=== PATIENT | female | born 2000 | race Caucasian/White ===

== ENCOUNTER 2024-07-05 15:09 | Outpatient (CLI) | payer BC, SELFPAY ==
[2024-07-05 15:47] LABS: Basophils % 0.6 % (0.1-2.0); Eosinophils # 0.2 K/mm3 (0.0-0.4); Hemoglobin 11.7 g/dL (12.2-16.2); Lymphocytes # 1.6 K/mm3 (0.7-4.5); Lymphocytes % 23.4 % (10-50); Mean Corpuscular HGB Conc 32.4 g/dL (31.8-35.4); Mean Corpuscular Hemoglobin 33.4 pg (27.0-31.2); Mean Corpuscular Volume 103.1 fl (81-99); Mean Platelet Volume 8.4 fl (7.4-10.4); Monocytes # 0.4 K/mm3 (0.1-1.0); Monocytes % 5.4 % (1.7-9.3); Neutrophils # 4.7 K/mm3 (1.8-7.8); Neutrophils % 67.6 % (37.0-80.0); Platelet Count 239 K/mm3 (142-424); Red Blood Count 3.49 M/mm3 (4.20-5.40); Red Cell Distribution Width 14.1 % (11.5-17.5)
[2024-07-06 09:07] LABS: HIV (1&2) Antibody Rapid NONREACTIVE (NONREACTIVE)
[2024-07-07 09:21] LABS: HCV Ab Non Reactive (Non Reactive); Hepatitis B Surface Antigen Negative (Negative)
[2024-07-07 13:08] LABS: Rubella Antibodies, IgG 1.13 index (Immune >0.99)
[2024-07-07 14:13] LABS: Rapid Plasma Reagin Ab Titer Non Reactive titer (NonRea<1:1)
== END 2024-07-05 23:59 | disposition home or self-care (01) ==
LOC: LAB 15:14
PROVIDERS: Visit Provider Nurse Practitioner Obstetrics & Gynecology
DX: Z34.90 Encounter for supervision of normal pregnancy, unspecified, unspecified trimester (principal)
CPT/HCPCS: 86803; 86703; 36415; 85025; 86593; 86762; 86850; 87086; 87340

== ENCOUNTER 2024-07-13 10:28 | Outpatient (CLI) | payer BC, SELFPAY ==
--- NOTE | 2024-07-13 10:31 | US_ITS ---
PROCEDURE: US OB >= 14 WEEKS FETUS CLINICAL INDICATION: viability and dates COMPARISON: No exams were available for comparison FINDINGS: Transabdominal sonographic images of the pelvis were obtained. The following parameters are obtained: From her established due date she is 16weeks 1day, JOSEPH 12/27/2024 Viable fetus in the cephalic presentation with a posterior placenta grade 1. heart rate: 150bpm bpm. BPD: 16weeks 4days HC: 16weeks 3days AC: 16weeks 1day FL: 16weeks 5days HC/AC: 1.26 FL/BPD: 0.65 FL/AC: 0.22 Growth percentile: 56 Amniotic fluid: Appears normal. No obvious anomalies evident. profile seen, fetus active. Right ovary appears normal. Left ovary appears normal. IMPRESSION: 1. Viable fetus in the cephalic presentation with a posterior placenta grade 1. 2. The fluid is within normal limits. 3. Limited anatomical scan appears normal and the fetus is active. 4. biometry is consistent with the dates. JOSEPH will remain 12/27/2024. Dictated by: Adan Cook MD 07/14/2024 07:13 Adan Cook MD in [place] 07/14/2024 07:13
== END 2024-07-13 23:59 | disposition home or self-care (01) ==
LOC: RAD 10:29
PROVIDERS: Visit Provider Nurse Practitioner Obstetrics & Gynecology
DX: Z34.92 Encounter for supervision of normal pregnancy, unspecified, second trimester (principal); Z3A.15 15 weeks gestation of pregnancy
CPT/HCPCS: 76805

== ENCOUNTER 2024-08-11 12:15 | Outpatient (CLI) | payer BC, SELFPAY ==
--- NOTE | 2024-08-11 12:15 | US_ITS ---
PROCEDURE: US OB /MATERNAL DETAIL CLINICAL INDICATION: 20 week Anatomy Scan-US OB Complete COMPARISON: No exams were available for comparison FINDINGS: Transabdominal sonographic images of the pelvis were obtained. From her established due date she is 20 weeks 2 days. Single viable intrauterine gestation. Breech position. Placenta: Posterior fundal wrapped placenta grade 1. There is an average amount of fluid. The cervix appears satisfactory. Closed and measuring 4.24 cm in length. Complete survey performed and was unremarkable on the submitted images as in PACS. No discrete anomalies identified on survey imaging by technologist. Active fetus. Three-vessel cord with satisfactory umbilical cord insertion. 4- chamber heart noted. Situs, aortic arch, LVOT, RVOT, three-vessel view appear normal. Survey of brain & ventricles Unremarkable. Cerebellum, thalamus, choroid plexus, cisterna magna appear normal. Face and neck survey unremarkable. Profile, nasion, lips and nose appeared normal. Diaphragm and chest views unremarkable. Abdomen: Both kidneys noted and unremarkable. Stomach and bladder noted and satisfactory. Spine: Survey of the spine satisfactory with no anomalies identified nor imaged. Cervical, thoracic, lower spine appear normal. Both arms and legs noted. Amniotic Fluid: Adequate. MVP 5.95 cm Measurements: Average ultrasound age 20weeks 2days. Estimated due date by ultrasound age 0212/27/2024. Estimated weight 343g BPD = 20weeks 0 days HC = 20weeks 0 days AC = 20weeks 5days FL = 20weeks 1day Growth Percentile= 43 Heart Rate = 149bpm Cerebellum = 19weeks 6days Humerus = 20weeks 6days HC/AC is 1.13 FL/BPD is 0.7 FL/AC is 0.21 IMPRESSION: 1. Viable fetus in the breech presentation with a posterior fundal wrapped placenta grade 1. 2. The fluid is within normal limits. MVP 5.95 cm. 3. Anatomical scan appears normal. 4. Spine views appeared normal but were incomplete due to position and would suggest repeat views in 2-3 weeks. 5. biometry is consistent with the dates. Dictated by: Adan Cook MD 08/12/2024 12:57 Adan Cook MD in [place] 08/12/2024 12:57
== END 2024-08-11 23:59 | disposition home or self-care (01) ==
LOC: RAD 12:15
PROVIDERS: PCP Family Medicine; Visit Provider Nurse Practitioner Obstetrics & Gynecology
DX: Z36.3 Encounter for antenatal screening for malformations (principal); O09.292 Supervision of pregnancy with other poor reproductive or obstetric history, second trimester; Z3A.20 20 weeks gestation of pregnancy
CPT/HCPCS: 76811

== ENCOUNTER 2024-09-02 12:52 | Outpatient (CLI) | payer BC, SELFPAY ==
--- NOTE | 2024-09-02 12:52 | US_ITS ---
PROCEDURE: US OB >= 14 WEEKS FETUS CLINICAL INDICATION: spine views COMPARISON: US US OB >= 14 WEEKS FETUS from 07/13/2024 US US OB /MATERNAL DETAIL from 08/11/2024 FINDINGS: Transabdominal sonographic images of the pelvis were obtained. The following parameters are obtained: From her established due date she is 23weeks 3days Viable fetus in the breech presentation with a posterior placenta grade 1. The cervix measures 3.3 cm. heart rate: 146bpm bpm. Average ultrasound age is 23 weeks 0 days weight is 568 grams, 1 lb 4 oz BPD: 22weeks 3days HC: 22weeks 3days AC: 23weeks 3days FL: 23weeks 2days HC/AC: 1.09 FL/BPD: 0.76 FL/AC: 0.22 Growth percentile: 29 Amniotic fluid: MVP 3.67 cm. No obvious anomalies evident. profile seen, stomach, bladder, kidneys, three-vessel cord, four chamber heart appear normal. spine: Cervical, thoracic and lower spine appear normal. heart: Four-chamber view, three-vessel view, LVOT and RVOT appear normal. IMPRESSION: 1. Viable fetus in the breech presentation with a posterior placenta grade 1. 2. The fluid is within normal limits MVP 3.67 cm. 3. Spinal views today were seen and appear normal. Cardiac views appear normal as well. 4. The rest of the limited anatomical scan appears normal. 5. There has been good interval growth and biometry is consistent with the dates. Dictated by: Adan Cook MD 09/03/2024 08:38 Adan Cook MD in [place] 09/03/2024 08:38
== END 2024-09-02 23:59 | disposition home or self-care (01) ==
LOC: RAD 12:52
PROVIDERS: PCP Family Medicine; Visit Provider Nurse Practitioner Obstetrics & Gynecology
DX: Z34.90 Encounter for supervision of normal pregnancy, unspecified, unspecified trimester (principal)
CPT/HCPCS: 76805

== ENCOUNTER 2024-10-11 11:42 | Outpatient (CLI) | payer BC, SELFPAY ==
[2024-10-11 12:20] LABS: Basophils # 0.1 K/mm3 (0-0.2); Basophils % 0.6 % (0.1-2.0); Eosinophils # 0.2 K/mm3 (0.0-0.4); Eosinophils % 1.9 % (0.1-12.0); Hematocrit 36.5 % (37.0-47.0); Hemoglobin 12.3 g/dL (12.2-16.2); Lymphocytes # 1.8 K/mm3 (0.7-4.5); Lymphocytes % 22.5 % (10-50); Mean Corpuscular HGB Conc 33.6 g/dL (31.8-35.4); Mean Corpuscular Hemoglobin 33.4 pg (27.0-31.2); Mean Corpuscular Volume 99.5 fl (81-99); Mean Platelet Volume 7.8 fl (7.4-10.4); Monocytes # 0.5 K/mm3 (0.1-1.0); Neutrophils # 5.4 K/mm3 (1.8-7.8); Platelet Count 244 K/mm3 (142-424); Red Blood Count 3.67 M/mm3 (4.20-5.40); Red Cell Distribution Width 12.8 % (11.5-17.5); White Blood Count 7.8 K/mm3 (4.8-10.8)
[2024-10-11 12:33] LABS: Glucose,Fasting 68 mg/dl (74-100)
[2024-10-11 14:22] LABS: Glucose 1 Hour 166 mg/dL (74-100)
[2024-10-11 15:00] LABS: RPR W/RFX Titers Nonreactive (Nonreactive)
== END 2024-10-11 23:59 | disposition home or self-care (01) ==
PROVIDERS: Visit Provider Nurse Practitioner Obstetrics & Gynecology
DX: Z34.90 Encounter for supervision of normal pregnancy, unspecified, unspecified trimester (principal)
CPT/HCPCS: 82951; 85025; 86592

== ENCOUNTER 2024-10-21 14:23 | Outpatient (CLI) | payer BC, SELFPAY ==
--- NOTE | 2024-10-21 14:24 | US_ITS ---
PROCEDURE: US OB BIOPHYSICAL PROFILE CLINICAL INDICATION: SGA COMPARISON: US US OB >= 14 WEEKS FETUS from 07/13/2024 US US OB /MATERNAL DETAIL from 08/11/2024 US US OB >= 14 WEEKS FETUS from 09/02/2024 FINDINGS: Transabdominal sonographic images of the uterus were obtained. From her established due date she is 30weeks 3days. The following parameters are obtained: Viable Fetus in the cephalic presentation with a posterior placenta grade 1. Average ultrasound age is 30weeks 2days Estimated weight 1,471g, 3 lb 4 oz Cervix measures 2.86 cm Measurements: heart Rate = 149bpm BPD = 30weeks 4days, 42 percentile HC = 30weeks 4days, 18 percentile AC = 29weeks 2days, 15 percentile FL = 30weeks 4days, 38 percentile HC/AC is 1.11 FL/BPD is 0.77 FL/AC is 0.23 21 percentile Amniotic fluid index: 10.71cm, MVP 4.28 cm Qualitative AFV:2 Breathing movements: 2 Gross Body Movements: 2 Tone: 2 Biophysical profile score: 8 Doppler evaluation of the umbilical artery: SD ratio: 3.73-4.79 Resistive index: 0.73 No obvious anomalies evident.Kidneys, stomach, bladder, four-chamber heart, three-vessel cord appear normal. IMPRESSION: 1. Viable fetus in the cephalic presentation with a posterior placenta grade 1. 2. The fluid is within normal limits with an amniotic fluid index 10.71 cm, MVP 4.28 cm. 3. Biophysical profile is 8/8 with good breathing movement and movement seen. 4. SD ratio is normal 3.73-4.79. 5. There has been good interval growth with the fetus currently 21st percentile. 6. Limited anatomical scan appears normal. Dictated by: Adan Cook MD 10/22/2024 07:45 Aadn Cook MD in [place] 10/22/2024 07:45
== END 2024-10-21 23:59 | disposition home or self-care (01) ==
LOC: RAD 14:24
PROVIDERS: PCP Nurse Practitioner Obstetrics & Gynecology; Visit Provider Nurse Practitioner Obstetrics & Gynecology
DX: O36.5990 Maternal care for other known or suspected poor fetal growth, unspecified trimester, not applicable or unspecified (principal)
CPT/HCPCS: 76816; 76819; 76820

== ENCOUNTER 2024-11-24 12:17 | Outpatient (CLI) | payer MEDICAID, SELFPAY ==
[2024-11-24 12:46] VITALS: BMI 33.3
[2024-11-24 12:50] VITALS: BP 120/74; PULSE 116; RESP 16; TEMP 37.2; O2SAT 99; BMI 33.3
[2024-11-24 12:52] LABS: Microscopic, Urine URINE MICROSCOPIC (MICROSCOPIC)
[2024-11-24 13:14] LABS: Bilirubin,Urine Negative (Negative); Blood, Urine Negative (Negative); Color,Urine YELLOW (Yellow); Glucose,Urine (UA) Negative (Negative); Ketones,Urine Negative (Negative); Leukocyte Esterase,Urine 3+ (Negative); Nitrate,Urine Negative (Negative); Protein,Urine Negative (Negative); Urobilinogen,Urine 0.2 EU/dl (0.2)
[2024-11-24 13:18] LABS: Appearance,Urine Slightly Cloudy (Clear)
[2024-11-24 13:23] LABS: Amphetamine/Metha Screen,Urine Negative ng/ml (<1000); Benzodiazepines Screen,Urine Negative ng/ml (<200)
[2024-11-24 13:24] LABS: Barbiturates Screen,Urine Negative ng/ml (<200)
[2024-11-24 13:26] LABS: Cocaine Screen,Urine Negative ng/ml (<300)
[2024-11-24 13:27] LABS: Opiate Screen,Urine Negative ng/ml (<300); Phencyclidine Screen,Urine Negative ng/ml (<25)
[2024-11-24 13:36] LABS: Cannabinoid Screen,Urine Negative ng/ml (<50)
[2024-11-24 13:47] LABS: Bacteria,Urine 3+ /lpf; Squamous Epithelial Cell,Urine 50-100 #/hpf (0-5)
[2024-11-24 14:30] LABS: Methadone Screen,Urine Negative ng/ml (<300)
== END 2024-11-24 15:16 | disposition home or self-care (01) ==
LOC: OBOUT 12:18 → OB 12:19
PROVIDERS: Visit Provider Obstetrics & Gynecology
DX: O26.893 Other specified pregnancy related conditions, third trimester (principal); Z3A.35 35 weeks gestation of pregnancy; W01.0XXA Fall on same level from slipping, tripping and stumbling without subsequent striking against object, initial encounter
CPT/HCPCS: 80307; 81001; 87086; G0463

== ENCOUNTER 2024-11-29 16:34 | Outpatient (CLI) | payer MEDICAID, SELFPAY | END 2024-11-29 23:59 | disposition home or self-care (01) | LOC: LAB.DROPOF 16:34 | PROVIDERS: PCP Nurse Practitioner Obstetrics & Gynecology; Visit Provider Nurse Practitioner Obstetrics & Gynecology | DX: Z36.89 Encounter for other specified antenatal screening (principal) | CPT/HCPCS: 86403 ==

== ENCOUNTER 2024-12-21 05:11 | Inpatient (IN) | payer MEDICAID, SELFPAY ==
[2024-12-21] VITALS (8 sets, daily range): BP systolic 116–144; BP diastolic 58–84; PULSE 82–94; RESP 17–18; TEMP 36.6–36.9; O2SAT 98–100; BMI 34.2
[2024-12-21 05:59] LABS: Basophils % 0.4 % (0.1-2.0); Eosinophils # 0.3 K/mm3 (0.0-0.4); Eosinophils % 3.2 % (0.1-12.0); Hematocrit 36.9 % (37.0-47.0); Hemoglobin 12.6 g/dL (12.2-16.2); Lymphocytes # 1.9 K/mm3 (0.7-4.5); Lymphocytes % 24.8 % (10-50); Mean Corpuscular HGB Conc 34.1 g/dL (31.8-35.4); Mean Corpuscular Hemoglobin 33.2 pg (27.0-31.2); Mean Corpuscular Volume 97.4 fl (81-99); Mean Platelet Volume 10.9 fl (7.4-10.4); Monocytes # 0.6 K/mm3 (0.1-1.0); Monocytes % 7.5 % (1.7-9.3); Neutrophils # 4.9 K/mm3 (1.8-7.8); Neutrophils % 63.5 % (37.0-80.0); Platelet Count 214 K/mm3 (142-424); Red Blood Count 3.79 M/mm3 (4.20-5.40); Red Cell Distribution Width 12.6 % (11.5-17.5); White Blood Count 7.7 K/mm3 (4.8-10.8)
[2024-12-21 06:07] LABS: Chloride 109 mmol/L (98-107); Potassium 3.9 mmoL/L (3.5-5.1); Sodium 137 mmol/L (136-145)
[2024-12-21 06:10] LABS: Anion Gap 10.9 mEq/L (5-15); Blood Urea Nitrogen 11 mg/dl (7-17); Calcium 8.6 mg/dl (8.4-10.2); Carbon Dioxide 21 mmol/L (22.0-30.0); Creatinine Clearance Estimated 242 mL/min (50-200); Estimated Glomerular Filt Rate 153 ml/min (>60); GFR (African American) 185 ML/MIN (>60); Glucose 80 mg/dl (74-100)
--- NOTE | 2024-12-21 07:21 | EXP.HP ---
History of Present Illness *Admission Date: 12/21/24 *Reason for visit:: Term , previous fourth degree perineal laceration *History of present illness: She is a 24-year-old 4 para 1 aborta 2 who is 39 weeks gestational age. She expressed desire for sterilization. She had a previous fourth degree tear and was concerned about fecal incontinence if this happened again. As a result of that she was admitted for primary lower segment transverse section. O+ blood Rubella immune Group B streptococcus negative PFSH [facility] Disclaimer: The information contained in this section may have been updated after the patient was seen, as this information can be updated by other users. Medical History Surgical History History of delivery Family History Substance abuse Diabetes Alcoholism FHx: mental illness Cancer Stroke Social History Smoking Status: Never smoker alcohol intake: never substance use type: denies use current occupational status: employed Travel in the last 8 weeks: None Have you lived/traveled outside [place] in past 30 days?: No Contact w/someone who lives/traveled outside US past 30 days?: No Exposure to someone with infectious disease in past 14 days?: No Do you have a fever (greater than 100.4 F or 38 C)?: No Have you tested positive for COVID-19: No Exposed to someone with COVID-19 in past 14 days?: No Do you have a sore throat?: No Do you have a cough?: No Do you have any weakness?: No Do you have any diarrhea?: No Are you experiencing any unusual bleeding?: No Do you have any muscle aches/pain?: No Do you have any abdominal pain?: No Are you experiencing loss of taste or smell?: No Other Medical History Have you received the Flu Vaccine for this season: Yes Have you received the Pneumonia Vaccine: No Review of Systems Review of Systems Review of systems:: pertinent systems reviewed and negative unless documented below Meds Home Medications and Allergies Home Medications ?Medication ?Instructions ?Recorded ?Confirmed ?Type vits no.126-ferrous fum 1 tab PO DAILY 08/11/24 12/21/24 History 28 mg iron-folic acid 800 mcg tablet (Classic ) ferrous sulfate 325 mg (65 mg 325 mg PO DAILY #30 tabs 09/14/24 12/21/24 Rx iron) tablet New Prescriptions to Start Prescriptions: Allergies Allergy/AdvReac Type Severity Reaction Status Date / Time amoxicillin Allergy Severe Hives Verified 12/21/24 05:56 asparagus Allergy Severe weeze Verified 12/21/24 05:56 Exam Data for Last 24 hours Vital signs and Labs for Last 24 Hours: Temp Pulse Resp BP Pulse Ox O2 Del Method 98.4 F 93 H 18 129/66 98 Room Air 12/21/24 05:34 12/21/24 05:34 12/21/24 05:34 12/21/24 05:34 12/21/24 05:34 12/21/24 05:34 Laboratory Results - last 24 hr 12/21/24 05:40: WBC 7.7, RBC 3.79 L, Hgb 12.6, Hct 36.9 L, MCV 97.4, MCH 33.2 H, MCHC 34.1, RDW 12.6, Plt Count 214, MPV 10.9 H, Neut % (Auto) 63.5, Lymph % (Auto) 24.8, Faulkner % (Auto) 7.5, Eos % (Auto) 3.2, Baso % (Auto) 0.4, Neut # (Auto) 4.9, Lymph # (Auto) 1.9, Faulkner # (Auto) 0.6, Eos # (Auto) 0.3, Baso # (Auto) 0.0, Sodium 137, Potassium 3.9, Chloride 109 H, Carbon Dioxide 21 L, Anion Gap 10.9, BUN 11, Creatinine 0.50 L, Estimated Creat Clear 242, Estimated GFR 153, Est GFR ( Amer) 185, Glucose 80, Calcium 8.6 I & O for Last 24 hours: Intake & Output 12/18/24 12/19/24 12/20/24 12/21/24 11:59 11:59 11:59 11:59 Weight 193 lb Constitutional Constitutional: no acute distress *Routine HEENT Exam Head: Present normocephalic Eye: Present EOMI and PERRL ENT: Present mucous membranes moist *Routine Neck Exam Neck: Present supple; Absent lymphadenopathy *Routine Respiratory Exam Respiratory: Present CTA bilaterally *Routine Cardiovascular Exam Cardiovascular: Present RRR *Routine Abdominal Exam Abdominal: Present soft and normoactive bowel sounds; Absent tenderness *Routine Rectal Exam Rectal:: deferred *Routine Genitalia Exam Genitalia:: deferred *Routine Extremities Exam Extremities: Absent cyanosis, clubbing or edema *Routine Skin Exam Skin: Present warm; Absent rash *Routine Neurological Exam Neurological: Present alert and oriented X3 Assessment and Plan *Assessment and plan (1) delivery delivered: Status: Acute Category: Medical Code(s): O82 - Encounter for delivery without indication Plan She is admitted for a primary lower segment transverse section.
[2024-12-21] MEDS: LEVOFLOXACIN/D5W 500 MG/100 ML PIGGYBACK 100 MG IV (07:57)
--- NOTE | 2024-12-21 08:25 | HMH.PHAINT1 ---
Pharmacy Intervention Comments: MEDICATION RECONCILIATION COMPLETED ON PATIENT USING EXTERNAL FILL HISTORY FROM PHARMACY AND LIST FROM GEOCHEMISTRY TEACHER OFFICE. -TEREZA AAROND
--- NOTE | 2024-12-21 08:37 | EXP.ANES.CKL ---
[facility] Disclaimer: The information contained in this section may have been updated after the patient was seen, as this information can be updated by other users. Medical History Surgical History History of delivery Family History Substance abuse Diabetes Alcoholism FHx: mental illness Cancer Stroke Social History Smoking Status: Never smoker alcohol intake: never substance use type: denies use current occupational status: employed Travel in the last 8 weeks: None Have you lived/traveled outside US in past 30 days?: No Contact w/someone who lives/traveled outside US past 30 days?: No Exposure to someone with infectious disease in past 14 days?: No Do you have a fever (greater than 100.4 F or 38 C)?: No Have you tested positive for COVID-19: No Exposed to someone with COVID-19 in past 14 days?: No Do you have a sore throat?: No Do you have a cough?: No Do you have any weakness?: No Do you have any diarrhea?: No Are you experiencing any unusual bleeding?: No Do you have any muscle aches/pain?: No Do you have any abdominal pain?: No Are you experiencing loss of taste or smell?: No [facility] Anesthesia Checklist Patient Identification Patient Identification: Verbal (Name & ) Structural Data Admitted From: Inpatient Planned Operative Procedure/s: c/section Consent for Planned Operative Procedure(s) Verified: Yes NPO Status Verified Time NPO: 00:00 Airway Assessment Mallampati Score:: Class II C-Spine Mobility Assessed: Yes TMJ Mobility Assessed: Yes Dentition: Good Dentition Neurological Assessment Level of Consciousness: Awake, Alert and Appropriate Anesthesia Plan Anesthesia Risk discussed: Yes Anesthesia Plan: Verified ASA Class: II Anesthesia Type: Spinal
--- NOTE | 2024-12-21 08:39 | P.PNANES_ITS ---
[facility] Anesthesia Record Part I Anesthesia Record I Intake, IV Amount: 2,000 Hydration: Adequate Estimated blood loss (mL): 600 Urine output (mL): 400
[2024-12-21] MEDS: MEPERIDINE 25MG/ML 1ML SYRINGE 25 MG IV (08:42)
--- NOTE | 2024-12-21 08:44 | P.OP_ITS ---
Date of procedure: 12/21/24 Pre-op Diagnosis:: Term , desire for section, previous fourth degree tear. Post-op Diagnosis:: Term , desire for section, previous fourth degree tear Procedure performed:: Primary lower segment transverse section Surgeon:: Adan Cook MD [employer] Installation Helper(s):: Dr. Grant JOB PUTTER UP AND TICKET PREPARER:: Omar Bateman Anesthesia: spinal Estimated blood loss (mL): 600 Clinical Note:: She is a 24-year-old 4 para 1 aborta 2 who is 39 weeks gestational age. She has had a previous fourth degree vaginal tear with her first delivery and she was concerned about another fourth degree tear and fecal incontinence. As result of that she elected for a primary lower segment transverse section. Operative findings:: She delivered a liveborn female child at 7:56 AM on the morning of December 21, 2024. The baby weighed 6 pounds 10 ounces and was 18-1/2 inches long. She had Apgars of 8 at 1 minute and 9 at 5 minutes. Ovaries and tubes appeared normal as did the rest of the pelvis. Operative note:: She was taken to the operating room where spinal anesthesia was found be adequate. She was prepped and draped in normal sterile fashion in the supine position. A Kevin catheter was in the bladder. A Pfannenstiel skin incision was made with knife then carried through to the underlying layer of fascia with cautery. The fascia was opened in the midline with cautery and extended laterally using Cano scissors. [place] clamps were applied to the superior aspect of the fascial incision which was tented up and the underlying rectus muscles dissected off using cautery. The Luanne clamps were then applied to the inferior aspect of the fascial incision which in a similar fashion was tented up and the underlying rectus muscles dissected off using cautery. The rectus muscles were then in the midline, the peritoneum identified, and entered sharply with Metzenbaum scissors.. An Marciano retractor was then inserted into the abdominal cavity. Bladder peritoneum was opened midline extended laterally using Metzenbaum scissors. Transverse incision was made through the uterine muscle through to the amnion. This incision was then extended superiorly and inferiorly using the fingers as traction. The amnion was entered sharply with knife. There was thin meconium in the amniotic fluid. The 's head was then delivered atraumatically. The oropharynx and nasopharynx were DeLee suctioned. This was followed by the anterior shoulder and the rest of the 's body atraumatically. The oropharynx and nasopharynx were further DeLee suctioned. The was vigorous so we allowed the cord to continue to pulsate for approximately 1 minute. The cord was then doubly clamped and cut. The infant was then handed off to Dr. Davenport assigned Apgars of 8 at 1 minute and 9 at 5 minutes. We then obtained cord blood. Using gentle traction on the cord and fundal massage I was able to easily deliver the placenta intact. It had a normal three-vessel cord. The uterus was then cleared of clots and debris . The uterine incision was then closed using running 0 Vicryl suture in a locked fashion. A second layer of the same suture was used to imbricate the first layer. The bladder peritoneum was then closed using running 2-0 Vicryl suture in a locked fashion. The gutters and cul-de-sac were then cleared of clots and debris . Once again hemostasis was assured. The peritoneum was then closed with 2-0 Vicryl suture followed by reapproximation of the rectus muscle using 0 Vicryl suture. The fascia was closed using running #1 Vicryl suture. The subcutaneous tissues were then irrigated with warm water followed by closure Ana's fascia using running 2-0 Monocryl suture. The skin was closed with absorbable jane. I then cleaned the skin with Hibiclens. Sterile dressings were applied. Anesthesia then performed a tap block under ultrasound guidance. She tolerated the procedure well and was taken to the recovery room in excellent condition. All sponges, instrument and needle counts were correct. Estimated blood loss was approximately 600 mL.. Condition: stable Disposition: floor Specimens:: None Complications:: None
[2024-12-21] MEDS: ONDANSETRON 4MG/2ML VIAL 4 MG IV (08:52)
[2024-12-21] MEDS: LACTATED RINGERS 1000ML 1,000 ML 125 ML IV (09:25)
[2024-12-21] MEDS: OXYTOCIN/RINGERS LACTATE 30 UNITS/500 ML BAG 40 UNITS IV (09:25)
[2024-12-21] MEDS: CLINDAMYCIN PHOSPHATE/D5W 900 MG/50 ML PIGGYBACK 100 MG IV ×3 (09:37→23:22)
[2024-12-21] MEDS: ACETAMINOPHEN 500MG TAB 1000 MG PO ×3 (10:23→21:09)
[2024-12-21] MEDS: KETOROLAC 30MG/ML VIAL 30 MG IV ×3 (10:23→21:09)
--- NOTE | 2024-12-21 12:46 | P.PNANES_ITS ---
[facility] Anesthesia Record Part II Anesthesia Record Part II Discharge Time: 09:00 Destination: Obstetric PACU nurse assessment reviewed?: Yes Patient Condition:: Good Anesthesia Complications:: None Swallowing reflex intact?: Yes Airway Patency: Patent Cyanosis?: No Blood Pressure: 132/75 SaO2: 98 Respiratory Rate: 18 Pulse Rate: 92 Temperature: 97.8 F Mental Status: Alert & Oriented Pain level:: 0 Nausea and/or vomitting:: None Intake, IV Amount: 0 Hydration: Adequate
[2024-12-21 13:32] LABS: Microscopic, Urine URINE MICROSCOPIC (MICROSCOPIC)
[2024-12-21 13:36] LABS: Appearance,Urine CLEAR (Clear); Bilirubin,Urine Negative (Negative); Blood, Urine Negative (Negative); Color,Urine YELLOW (Yellow); Glucose,Urine (UA) Negative (Negative); Ketones,Urine Negative (Negative); Leukocyte Esterase,Urine Negative (Negative); Nitrate,Urine Negative (Negative); Protein,Urine Negative (Negative); Urobilinogen,Urine 0.2 EU/dl (0.2)
[2024-12-21 13:52] LABS: Barbiturates Screen,Urine Negative ng/ml (<200)
[2024-12-21 13:53] LABS: Benzodiazepines Screen,Urine Negative ng/ml (<200)
[2024-12-21 13:54] LABS: Amphetamine/Metha Screen,Urine Negative ng/ml (<1000); Methadone Screen,Urine Negative ng/ml (<300)
[2024-12-21 13:55] LABS: Cannabinoid Screen,Urine Negative ng/ml (<50)
[2024-12-21 13:56] LABS: Cocaine Screen,Urine Negative ng/ml (<300); Opiate Screen,Urine Negative ng/ml (<300)
[2024-12-21 13:57] LABS: Phencyclidine Screen,Urine Negative ng/ml (<25)
[2024-12-21] MEDS: OXYCODONE 5MG IMMEDIATE RELEASE TABLET 5 MG PO ×3 (14:53→23:48)
[2024-12-21] MEDS: PRENATAL MULTIVITAMIN W/IRON 1 EACH PO (21:06)
[2024-12-21] MEDS: SIMETHICONE 80MG CHEWABLE TABLET 160 MG PO (21:06)
[2024-12-21] MEDS: SENNA 8.6MG TABLET 8.6 MG PO (21:06)
[2024-12-21] MEDS: ONDANSETRON 4MG ODT 4 MG SL (23:55)
[2024-12-21 23:58] LABS: RPR W/RFX Titers Nonreactive (Nonreactive)
[2024-12-22 03:01] VITALS: BP 118/71; PULSE 71; RESP 20; TEMP 36.8; O2SAT 100
[2024-12-22] MEDS: ACETAMINOPHEN 500MG TAB 1000 MG PO ×4 (03:04→20:58)
[2024-12-22] MEDS: KETOROLAC 10MG TABLET 10 MG PO ×2 (03:04→09:02)
[2024-12-22] MEDS: SIMETHICONE 80MG CHEWABLE TABLET 160 MG PO (03:05)
[2024-12-22] MEDS: OXYCODONE 5MG IMMEDIATE RELEASE TABLET 5 MG PO ×3 (03:58→14:59)
[2024-12-22 09:55] LABS: Hematocrit 32.1 % (37.0-47.0); Hemoglobin 10.7 g/dL (12.2-16.2)
--- NOTE | 2024-12-22 11:03 | EXP.ACUTE.PN ---
Subjective *Date: 12/22/24 *Time: 09:15 Interval history: She is 1 day post section. She is doing very well. She is eating and drinking and ambulating. She is breast-feeding. Her lochia is normal. She is receiving oxycodone 5 mg as needed for pain. Medical Exam Vital signs and Labs for Last 24 Hours: Vital Signs Temp Pulse Resp BP Pulse Ox O2 Del Method 12/22/24 03:01 98.3 F 71 20 118/71 100 Room Air 12/21/24 20:48 97.9 F 83 17 116/63 100 Room Air 12/21/24 16:20 98.2 F 82 18 120/65 99 12/21/24 12:47 18 Intake and Output 12/21/24 12/22/24 12/22/24 19:59 03:59 11:59 Intake Total 0 / 0 Output Total 1200 / 2700 1500 / 2700 Balance -1200 / -2700 -1500 / -2700 Intake: Intake, Total IV Amount 0 / 0 Output: Output, Urine Amount 1500 / 1500 Output, Urine Amount (Catheter) 1200 / 1200 Kevin 1200 / 1200 Other: Number of Voids 1 Laboratory Results - last 24 hr 12/21/24 05:40: RPR w/Rflx to Titer Nonreactive, Blood Type O Positive, Antibody Screen Negative 12/21/24 07:35: Urine Color Yellow, Urine Appearance Clear, Urine pH 7.0, Ur Specific [place] 1.010, Urine Protein Negative, Urine Glucose (UA) Negative, Urine Ketones Negative, Urine Blood Negative, Urine Nitrate Negative, Urine Bilirubin Negative, Urine Urobilinogen 0.2, Ur Leukocyte Esterase Negative, Urine RBC None, Urine WBC None, Ur Squamous Epith Cells None, Urine Bacteria None, Urine Opiates Screen Negative, Urine Methadone Screen Negative, Ur Barbituates Screen Negative, Ur Phencyclidine Scrn Negative, Ur Amphetamines Screen Negative, U Benzodiazepines Scrn Negative, Urine Cocaine Screen Negative, U Marijuana (THC) Screen Negative 12/22/24 09:29: Hgb 10.7 L, Hct 32.1 L I & O for Labs for Last 24 Hours: Intake & Output 12/19/24 12/20/24 12/21/24 12/22/24 11:59 11:59 11:59 11:59 Intake Total 1999 / 1999 0 / 0 Output Total 2700 / 2700 Balance 1999 -2700 / -2700 Weight 193 lb Head: Present atraumatic ENT: Present normal exam Neck: Present normal inspection Respiratory: Absent accessory muscle use Assessment and Plan *Assessment and plan (1) delivery delivered: Status: Acute Category: Medical Code(s): O82 - Encounter for delivery without indication Plan She is doing very well post . She is eating and drinking and ambulating. She is breast-feeding. We will plan to send her home tomorrow.
[2024-12-22] MEDS: LANOLIN CREAM 40GM TP (11:06)
[2024-12-22] MEDS: IBUPROFEN 400 MG TABLET 800 MG PO ×2 (14:56→22:50)
[2024-12-22 20:36] VITALS: BP 122/62; PULSE 84; RESP 17; TEMP 36.9; O2SAT 99
[2024-12-23] MEDS: OXYCODONE 5MG IMMEDIATE RELEASE TABLET 5 MG PO (00:29)
[2024-12-23] MEDS: ACETAMINOPHEN 500MG TAB 1000 MG PO ×2 (03:19→09:10)
[2024-12-23 05:24] VITALS: BP 109/63; PULSE 77; RESP 17; TEMP 36.8; O2SAT 98
[2024-12-23] MEDS: IBUPROFEN 400 MG TABLET 800 MG PO (07:28)
[2024-12-23 07:45] VITALS: BP 118/80; PULSE 83; RESP 18; TEMP 36.9; O2SAT 100
[2024-12-23] MEDS: LANOLIN CREAM 40GM TP (10:26)
--- NOTE | 2024-12-23 13:37 | EXP.DC.SUM ---
General Admission date:: 12/21/24 Discharge date: 12/23/24 HPI HPI HPI: She is a 24-year-old 4 para 1 aborta 2 who is 39 weeks gestational age. She expressed desire for sterilization. She had a previous fourth degree tear and was concerned about fecal incontinence if this happened again. As a result of that she was admitted for primary lower segment transverse section. O+ blood Rubella immune Group B streptococcus negative Hospital Course Hospital Course Hospital Course: Maritza Webb is a 24-year-old who is postop day #2 from a primary low-transverse delivery at 39 weeks gestation after 1/4 degree laceration with her first delivery. She delivered a live viable female infant at 756 on the morning of December 21, 2024. The infant weighed 6 pounds 10 ounces and was 18-1/2 inches long. Apgars were 8 and 9 at 1 and 5 minutes respectively. No complications or abnormalities with the delivery. EBL was 600. She is eating and drinking and ambulating. She is breast feeding. Her lochia is normal. She has O Rh+ blood, she is rubella immune and was group B streptococcus negative. She will be discharged home to follow-up with Dr. Cook in 2 weeks time. She will continue with her vitamins. She has a prescription for Percocet and will continue these at home. She will take ibuprofen as well. She was given the usual instructions with respect to limiting her activity, driving and sexual activity. She was given instructions with respect to wound care. Her condition on discharge is stable and improved. Exam Data for Last 24 hours Vital signs and Labs for Last 24 Hours: Temp Pulse Resp BP Pulse Ox O2 Del Method 98.4 F 83 18 118/80 100 Room Air 12/23/24 07:45 12/23/24 07:45 12/23/24 07:45 12/23/24 07:45 12/23/24 07:45 12/23/24 07:45 I & O for Last 24 hours: Intake & Output 12/20/24 12/21/24 12/22/24 12/23/24 23:59 23:59 23:59 23:59 Intake Total 1999 / 1999 Output Total 2700 / 2700 Balance -700 / -700 Weight 193 lb Constitutional Constitutional: no acute distress *Routine HEENT Exam Head: Present normocephalic Eye: Present EOMI and PERRL ENT: Present mucous membranes moist *Routine Neck Exam Neck: Present supple; Absent lymphadenopathy *Routine Respiratory Exam Respiratory: Present CTA bilaterally *Routine Cardiovascular Exam Cardiovascular: Present RRR *Routine Abdominal Exam Abdominal: Present soft and normoactive bowel sounds; Absent tenderness *Routine Extremities Exam Extremities: Absent cyanosis, clubbing or edema *Routine Skin Exam Skin: Present warm; Absent rash Comments: Dressing covering incision is clean dry and intact without any noted blood *Routine Neurological Exam Neurological: Present alert and oriented X3 DS: Diagnosis Discharge Diagnosis (1) delivery delivered: Status: Acute Code(s): O82 - Encounter for delivery without indication Meds Home Medications and Allergies Home Medications ?Medication ?Instructions ?Recorded ?Confirmed ?Type vits no.126-ferrous fum 1 tab PO DAILY 08/11/24 12/21/24 History 28 mg iron-folic acid 800 mcg tablet (Classic ) ferrous sulfate 325 mg (65 mg 325 mg PO DAILY #30 tabs 09/14/24 12/21/24 Rx iron) tablet acetaminophen 500 mg tablet 500 mg PO Q6H PRN fever or pain 12/23/24 Rx #30 tabs ibuprofen 800 mg tablet 800 mg PO Q8H PRN pain #60 tabs 12/23/24 Rx oxycodone 5 mg tablet 5 mg PO Q8H PRN pain #18 tabs 12/23/24 Rx sennosides 8.6 mg tablet (Senna 8.6 mg PO BIDP PRN Constipation 12/23/24 Rx Lax) #60 tabs simethicone 125 mg tablet 125 mg PO DAILY PRN abdominal 12/23/24 Rx distention #60 tabs New Prescriptions to Start Prescriptions: Pallavi Schneider ibuprofen Pallavi Cuevas oxycodone Pallavi Cuevas sennosides [Senna Lax] Pallavi Cuevas simethiconPallavi Marin Allergies Allergy/AdvReac Type Severity Reaction Status Date / Time amoxicillin Allergy Severe Hives Verified 12/21/24 05:56 asparagus Allergy Severe weeze Verified 12/21/24 05:56 Discharge Plan Disposition Patient Disposition: Home, Self-Care Discharge Order Discharge Orders: Discharge Order (Routine); Ordered 12/23/24 Ordered By: Pallavi Cuevas Follow up Plan Follow up with: Adan Cook MD [Staff Physician] - Enter time for follow up Prescriptions/Medication Reconciliation: New sennosides [Senna Lax] 8.6 mg Tablet 8.6 mg PO BIDP PRN (Reason: Constipation) Qty: 60 2RF ibuprofen 800 mg tablet 800 mg PO Q8H PRN (Reason: pain) Qty: 60 2RF acetaminophen 500 mg tablet 500 mg PO Q6H PRN (Reason: fever or pain) Qty: 30 3RF oxycodone 5 mg tablet 5 mg PO Q8H PRN (Reason: pain) Qty: 18 0RF simethicone 125 mg tablet 125 mg PO DAILY PRN (Reason: abdominal distention) Qty: 60 2RF Continued Classic 28 mg iron- 800 mcg tablet 1 tab PO DAILY ferrous sulfate 325 mg (65 mg iron) tablet 325 mg PO DAILY Qty: 30 11RF Problem Reconciliation Problems Reviewed?: Yes Patient Discharge Instructions ACTIVITY: Continue current activity DIET: regular diet Additional Instructions: Congratulations on the delivery of your sweet baby girl. It is my privilege to be a part of your [employer] team. Discharge: 1. Take 800 mg Ibuprofen every 8 hours as needed for pain. You can also take 500-1000mg of Tylenol in between doses, every 6-8 hours. Use prescription pain medicine for pain you feel in between 8 hour interval. -No driving while taking narcotic pain medications. In order to drive you should be able to slam on the brakes without significant abdominal pain. 2. Wean from prescription pain medicine first. Do not drive while taking it. 3. Prescription pain medicine can make you constipated. Colace can be taken 1-2 times per day as you need. Make sure to drink at least 8 cups of water per day. 4. Iron supplements can make you constipated. Colace can be taken 1-2 times per day as you need. You can take iron tablets every other day if constipation is too bad. 5. Nothing in the vagina for 6 weeks - no intercourse, douching, tampons. No tub baths or swimming pools 6. Do not lift greater than 15 pounds for 6 weeks, this is the equivalent of 2 gallons of milk. 7. Reasons to return to L&D or call On-Call doctor - fever (greater than 100.4) - heavy vaginal bleeding (soaking through 1 pad in less than 2 hours or passing clots that are egg sized) - vaginal discharge (malodorous and/or purulent) - bleeding or discharge from her incision - severe headaches, leg tenderness/edema, or any other symptoms that warrant immediate medical attention. 8. depression/blues - Normal to feel anxious/overwhelmed for first 2 weeks - Talk to your doctor if: anxiety lasts over 2 weeks, trouble bonding with baby, withdrawing from other family members, thoughts of harming yourself or others Pallavi Cuevas DO [facility] [phone] *Nothing in the Vagina for 6 weeks* *No strenuous activity* *No heavy lifting* *No tub baths until okay's by MD* Patient Instructions: Depression, Hemorrhage, DI for , DI for Pre-eclampsia, [facility] Post Discharge Instructions Print Language: Sudanese Providers Primary Care Provider: Provider,Referral Admit Provider: Adan Cook Attending Provider: Adan Cook
== END 2024-12-23 14:33 | disposition home or self-care (01) | DRG 788 ==
PROVIDERS: Admitting Provider Nurse Practitioner Obstetrics & Gynecology; Visit Provider Nurse Practitioner Obstetrics & Gynecology
PROC: 10D00Z1 Extraction of Products of Conception, Low, Open Approach (ICD-10-PCS; CPT 59514; principal; 2024-12-21 07:30)
DX: O82 Encounter for cesarean delivery without indication (principal); Z3A.39 39 weeks gestation of pregnancy; Z37.0 Single live birth; Z87.59 Personal history of other complications of pregnancy, childbirth and the puerperium
CPT/HCPCS: 59025; 80048; 80307; 81001; 85014; 85018; 85025; 86592; 86850; 94761; G0283; J0736; J1885; J1956; J2175; J2405; J7120; Q0162